=== PATIENT | male | born 1995 | race Caucasian/White ===

== ENCOUNTER 2017-03-21 00:19 | Inpatient (IN) | payer MEDICAID, OTHER ==
[2017-03-21] VITALS (8 sets, daily range): BP systolic 123–155; BP diastolic 57–70; PULSE 61–99; RESP 16–20; TEMP 98–99.1; O2SAT 96–100
[~2017-03-21] VITALS: Ht 180.3 cm; Wt 102.3 kg
[2017-03-21] MEDS ORDERED: SODIUM CHLOR 0.9% 1000 ML INJ 1,000 ML IV SCH ×2 (00:36→06:35)
[2017-03-21] MEDS ORDERED: ceFAZolin 2 GM PREMIX 50 ML IV ONE (00:45)
[2017-03-21] MEDS ORDERED: SODIUM CHLORIDE 0.9% FLUSH 10 ML FLUSH IVF PRN (00:45)
[2017-03-21] MEDS ORDERED: DIPHTH/TETANUS/ACEL PERTUSSIS (BOOSTER) 0.5 ML VIAL/PFS IM ONE (00:45)
[2017-03-21] MEDS ORDERED: MORPHINE SULFATE 4 MG/ML INJ IV ONE (00:45)
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
[2017-03-21] MEDS ORDERED: PROPOFOL 200 MG/20 ML AMP IV ONE ×2 (01:45→13:55)
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
[2017-03-21] MEDS ORDERED: IOHEXOL 350 MG/ML 10 ML VIAL (for RAD DIAG) IVCONTRAST ONE (01:48)
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
[2017-03-21 02:03] LABS: AUTOMATED NEUTROPHIL # 16.7 TH/MM3 (1.8-7.7); BASOPHIL # 0.1 TH/MM3 (0-0.2); BASOPHIL % 0.3 % (0.0-2.0); EOSINOPHIL # 0.1 TH/MM3 (0-0.4); EOSINOPHIL % 0.3 % (0.0-4.0); HEMATOCRIT 39.1 % (39.0-51.0); HEMO FLAGS DIFF FINAL; LYMPH % 6.8 % (9.0-44.0); LYMPHOCYTE # 1.4 TH/MM3 (1.0-4.8); MEAN CORPUSCULAR HEMOGLOBIN 29.9 PG (27.0-34.0); MEAN CORPUSCULAR HGB CONC 33.9 % (32.0-36.0); NEUT % 83.6 % (16.0-70.0); PLATELET COUNT 254 TH/MM3 (150-450); RED BLOOD COUNT 4.45 MIL/MM3 (4.50-5.90); RED CELL DISTRIBUTION WIDTH 13.1 % (11.6-17.2)
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
[2017-03-21 02:12] LABS: APTT (PATIENT) 24.7 SEC (24.3-30.1); PROTHROMBIN TIME - PATIENT 11.4 SEC (9.8-11.6)
[2017-03-21 02:39] LABS: POTASSIUM 3.4 MEQ/L (3.5-5.1)
[2017-03-21 02:43] LABS: BACTERIA, URINE RARE /hpf; BLOOD, URINE SMALL (NEG); COMMENT (UR) CULT NOT INDICATED; CULTURE IF INDICATED CULT NOT INDICATED; GLUCOSE,URINE NEG (NEG); KETONE, URINE NEG (NEG); MUCUS URINE FEW /lpf (OCC); NITRITE,URINE NEG (NEG); SQUAMOUS EPITHELIAL CELL URINE <1 /hpf (0-5); TRANSITIONAL EPI CELLS, URINE <1 /hpf; URINE COLOR YELLOW (YELLW/STRAW)
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
[2017-03-21] MEDS ORDERED: HYDROmorphone HCL PF 1 MG/ML VIAL IV PUSH PRN (03:00)
[2017-03-21] MEDS ORDERED: oxyCODONE/ACETAMINOPHEN 5 MG/325 MG TAB PO PRN ×2 (03:00)
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
--- NOTE | 2017-03-21 03:31 | RADRPT ---
EXAM DATE/TIME: 03/21/2017 03:08 [facility] COMPARISON: No previous studies available for comparison. INDICATIONS : Pain to left ankle and foot, abrasion to left foot MEDICAL HISTORY : None. SURGICAL HISTORY : None. ENCOUNTER: Initial ACUITY: 1 day PAIN SCORE: 7/10 LOCATION: Left Foot FINDINGS: Three view examination of the left foot demonstrates no soft tissue swelling, dislocation, or fractur e. The tarsal bones appear intact. The interphalangeal and metatarsophalangeal joints are intact. The calcaneus is intact. Bony mineralization is normal. CONCLUSION: 1. No acute fracture or dislocation. Mik Kearns MD on March 21, 2017 at 3:29 Board Certified Radiologist. This report was verified electronically.
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
[2017-03-21] MEDS ORDERED: ENALAPRILAT 1.25 MG/ML VIAL IV PRN (06:45)
[2017-03-21] MEDS ORDERED: SODIUM CHLORIDE 0.9% FLUSH 10 ML FLUSH IV FLUSH PRN (06:45)
[2017-03-21] MEDS ORDERED: ONDANSETRON HCL 4 MG/2 ML VIAL IV PRN (06:45)
[2017-03-21] MEDS ORDERED: VANCOMYCIN HCL 1000 MG VIAL ONE (07:03)
[2017-03-21] MEDS ORDERED: GENTAMICIN SULFATE 80 MG/2 ML VIAL ONE ×2 (07:04→09:07)
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
[2017-03-21] MEDS ORDERED: ACETAMINOPHEN 1000 MG/100 ML 100 ML IV ONE (08:08)
[2017-03-21] MEDS ORDERED: MIDAZOLAM HCL 2 MG/2 ML VIAL ONE (08:08)
[2017-03-21] MEDS ORDERED: FAMOTIDINE 20 MG/2 ML VIAL ONE (08:09)
[2017-03-21] MEDS ORDERED: HYDROmorphone HCL PF 2 MG/ML VIAL ONE (08:09)
--- NOTE | 2017-03-21 08:40 | OTSOAPIP ---
PATIENT OFF THE FLOOR IN SURGERY. Therapist: Carmen Frank OTR/L Signature on file
[2017-03-21] MEDS: DOCUSATE SODIUM 50 MG/SENNA 8.6 MG TAB PO SCH ×2 (09:00→20:48)
[2017-03-21] MEDS ORDERED: POTASSIUM CHLORIDE 20 MEQ CONTROLLED RELEASE TAB PO ONE (10:00)
--- NOTE | 2017-03-21 10:22 | PD.OP ---
cc: Carroll Garner MD Operative Report Date of Surgery: Mar 21, 2017 Preoperative Diagnosis: Left radius and ulna shaft fractures Postoperative Diagnosis: Closed left radius fracture, open left ulna fracture Procedure: Open reduction internal fixation left radius, open reduction internal fixation left ulna, irrigation and debridement of open left ulna Anesthesia: Gen. Surgeon: Carroll Garner Jewel Sawyer(s): CARLOS Roca PA-C The surgical procedure was assisted by my physician speech therapy assistant. My P.A. presence was necessary throughout this case for the manipulation and positioning of the surgical extremity. My P.A. was assisting me throughout the duration of this procedure. The skill set of a physician speech therapy assistant was medically necessary to complete this procedure. During the surgical case the surgical corsetier was working at the back table and the physician speech therapy assistant was directly assisting me. Operation and Findings: Patient was seen and examined preoperatively. Patient was found to have displaced left radius and ulna shaft fractures. Informed consent was obtained and operative site was marked. Patient was brought to operating room and given IV sedation and general anesthesia. Timeout procedure was performed. Operative extremity was prepped and draped with alcohol followed by Hibiclens and draped in usual sterile fashion. IV antibiotics were administered prior to incision. Procedure began with a 5 inch incision over the subcutaneous border of the ulna. At this point there was noted to be a puncture wound communicating with the fracture site. The ulna fracture is an open fracture Fascia was elevated off of the bone. Fracture site was visualized. At this point attention was turned to debridement of fracture. Curettes were used to debride the edges of the bone. Overall the wound was clean. After debridement of soft tissue and bone the wound was thoroughly irrigated with sterile saline with antibiotics. Next attention was turned towards reduction. Fracture tenaculums were used to reduce fracture. Fracture keyed into anatomic alignment. A ITS plate was placed across the fracture. Plate was provisionally held to bone with K wires. 3.5 cortical screws were used to compress plate to bone. Multiple screws were placed in each side of fracture. K wires were removed. Fluoroscopy confirmed excellent alignment of fracture with well-placed hardware. Incision was now closed with #1 Vicryl, 3-0 Vicryl, and tracy. Next attention was turned to the radius. A 5 inch incision was made over the volar aspect of the forearm. A standard volar approach was utilized. The interval between the radial artery and superficial radial nerve was identified. Neurovascular structures were protected. Soft tissue was elevated off the bone. Fracture site was visualized. Fracture fragments were carefully reduced. Each fracture fragment keyed in anatomic alignment. K wires were used to hold provisional fixation. A ITS plate was contoured to fit the radius. Plate was provisionally held with K wires. 3.5 cortical screws were used to compress plate to bone. Multiple screws were placed in each side of fracture. K wires were removed. Final fluoroscopy revealed excellent of fracture with well-placed hardware. Sterile dressings were applied with Xeroform 4 x 4 soft roll and Solis wrap. Patient was awakened and transferred to recovery room in stable condition. Forearm compartments were soft and compressible. Carroll Garner MD Mar 21, 2017 10:22
[2017-03-21] MEDS ORDERED: HYDR-3366 PO (10:23)
[2017-03-21] MEDS ORDERED: MORPHINE SULFATE 4 MG/ML INJ IV PUSH PRN (10:30)
[2017-03-21] MEDS ORDERED: MAGN400S PO (10:33)
[2017-03-21] MEDS ORDERED: SENN1TAB PO (10:33)
[2017-03-21] MEDS ORDERED: DO NOT ADM ANY ANTICOAGULANT DRUGS PRN (10:52)
--- NOTE | 2017-03-21 10:59 | PD.ORT.PN ---
Subjective Subjective Remarks POD 0 s/p ORIF left BBFA\ stable in PACU Objective Vitals Vital Signs Date Time Temp Pulse Resp B/P (MAP) Pulse Ox O2 Delivery O2 Flow Rate FiO2 03/21/17 08:00 03/21/17 04:00 99.1 99 18 123/57 (79) 97 03/21/17 02:05 100 Nasal Cannula 2.00 03/21/17 02:05 100 2.00 03/21/17 00:47 99 Room Air 03/21/17 00:47 99 Room Air 03/21/17 00:25 98.3 81 16 123/69 (87) 99 03/21/17 00:23 16 I/O 03/20/17 03/20/17 03/20/17 03/21/17 03/21/17 03/21/17 07:00 15:00 23:00 07:00 15:00 23:00 Intake Total 1100 ml 1000 ml Output Total 50 ml Balance 1100 ml 950 ml Intake IV Total 1100 ml Other 1000 ml Output Estimated Blood Loss 50 ml Result Diagram: 03/21/17 0152 03/21/17 0152 Other Results Laboratory Tests Test 03/21/17 01:52 Prothromb Time International Ratio 1.0 RATIO Prothrombin Time 11.4 SEC (9.8-11.6) Imaging Last [address] 03/21/1735 Signed Impressions: Service Date/Time: Tuesday, March 21, 2017 01:20 - CONCLUSION: 1. No acute intracranial abnormality. Mik Kearns MD Chest CT 03/21/1735 Signed Impressions: Service Date/Time: Tuesday, March 21, 2017 01:32 - CONCLUSION: 1. Probable small amount of residual thymus in the anterior mediastinum. 2. Otherwise, no acute thoracic injury. Mik Kearns MD Cervical Spine CT 03/21/1735 Signed Impressions: Service Date/Time: Tuesday, March 21, 2017 01:20 - CONCLUSION: 1. No acute fracture or dislocation. Mik Kearns MD Abdomen/Pelvis CT 03/21/1735 Signed Impressions: Service Date/Time: Tuesday, March 21, 2017 01:32 - CONCLUSION: 1. Subtle 1.3 cm region of decreased enhancement in the inferior splenic margin posteriorly. A small focal splenic injury cannot be entirely excluded, although not supported by any additional adjacent soft tissue or bony abnormality. 2. Otherwise, no acute abnormality in the abdomen or pelvis. Mik Kearns MD Wrist X-Ray 03/21/17 0000 Signed Impressions: Service Date/Time: Tuesday, March 21, 2017 00:51 - CONCLUSION: 1. Comminuted nondisplaced distal ulna/ulnar styloid fracture. 2. Redemonstration of fractures involving the distal radial and ulnar diaphyses. Mik Kearns MD Radius/Ulna X-Ray 03/21/17 0000 Signed Impressions: Service Date/Time: Tuesday, March 21, 2017 03:12 - CONCLUSION: 1. Status post reduction of distal left ulnar and radial fractures, as above. Mik Kearns MD Radius/Ulna X-Ray 03/21/17 0000 Signed Impressions: Service Date/Time: Tuesday, March 21, 2017 00:49 - CONCLUSION: 1. Distal radial and ulnar fractures, as above. 2. Nondisplaced comminuted fracture of the distal ulna/ulnar styloid. Mik Kearns MD Foot X-Ray 03/21/17 0000 Signed Impressions: Service Date/Time: Tuesday, March 21, 2017 03:08 - CONCLUSION: 1. No acute fracture or dislocation. Mik Kearns MD Femur X-Ray 03/21/17 0000 Signed Impressions: Service Date/Time: Tuesday, March 21, 2017 01:03 - CONCLUSION: 1. No acute fracture or dislocation. Mik Kearns MD Ankle X-Ray 03/21/17 0000 Signed Impressions: Service Date/Time: Tuesday, March 21, 2017 03:07 - CONCLUSION: 1. No acute fracture or dislocation. Mik Kearns MD Objective Remarks LUE: dressings clean and dry. intact. NVI. +sling Assessment & Plan Assessment and Plan 1) Left radial and ulnar shaft fractures s/p ORIF - POD 0 -NWB -dressing changes POD 2 -plan for DC home friday after IV Abx completed -f/u with Jan or [facility] in 2 weeks -ortho cleared for DC home once Abx completed Venkat Herrera Mar 21, 2017 10:59
--- NOTE | 2017-03-21 11:00 | HHI.FF ---
Face to Face Verification Diagnosis: (1) Fracture of left radius and ulna Occupational Therapy Left UE Weight Bearing: Non WB Nursing Dressing Changes: Daily dressing change, Solis wrap, 4x4s, Xeroform I have seen patient Silver Tompkins on 03/21/17. My clinical findings support the need for the requested home health care services because: Ltd mobility - disease progression I certify that my clinical findings support that this patient is homebound because: Post-op weakness Venkat Herrera Mar 21, 2017 11:00
[2017-03-21] MEDS: BACITRACIN TOP OINT 15 GM TUBE TOP SCH ×2 (11:23→20:48)
[2017-03-21] MEDS ORDERED: *morphine SULFATE 8 MG/ML PERIprocedure ONLY ONE (11:33)
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
--- NOTE | 2017-03-21 12:42 | RADRPT ---
EXAM DATE/TIME: 03/21/2017 10:05 [facility] COMPARISON: FOREARM LEFT (2VWS), March 21, 2017, 3:12. INDICATIONS : Reduction with screw and plate placement left forearm. MEDICAL HISTORY : Distal left ulnar and radial fractures, SURGICAL HISTORY : None. ENCOUNTER: Subsequent ACUITY: 1 day PAIN SCORE: Non-responsive. LOCATION: Left Forearm. FINDINGS: Side plate and multiple screws traverse the distal radius and ulna with excellent anatomical alignmen t of the fracture fragments. CONCLUSION: Intact postsurgical changes for technique. Cookie Saldana MD on March 21, 2017 at 12:40 Board Certified Radiologist. This report was verified electronically.
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
[2017-03-21] MEDS ORDERED: ONDANSETRON HCL 4 MG/2 ML VIAL IV PUSH ONE (13:55)
[2017-03-21] MEDS ORDERED: LACTATED RINGER'S 1000 ML INJ 1,000 ML IV ONE (13:55)
[2017-03-21] MEDS ORDERED: NEOSTIGMINE 3 MG/3 ML SYR IV ONE (13:55)
[2017-03-21] MEDS: ceFAZolin 2 GM PREMIX 50 ML IV SCH (17:32)
[2017-03-21] MEDS: ACETAMINOPHEN/HYDROcodone 325 MG/10 MG TAB PO PRN ×2 (17:32→20:49)
[2017-03-21 18:49] LABS: AUTOMATED NEUTROPHIL # 9.4 TH/MM3 (1.8-7.7); BASOPHIL % 0.1 % (0.0-2.0); HEMO FLAGS DIFF FINAL; LYMPH % 5.6 % (9.0-44.0); LYMPHOCYTE # 0.6 TH/MM3 (1.0-4.8); MEAN CELL VOLUME 89.3 FL (80.0-100.0); MEAN CORPUSCULAR HEMOGLOBIN 30.2 PG (27.0-34.0); MEAN CORPUSCULAR HGB CONC 33.8 % (32.0-36.0); MONO % 5.1 % (0.0-8.0); NEUT % 89.2 % (16.0-70.0); PLATELET COUNT 274 TH/MM3 (150-450); RED BLOOD COUNT 4.48 MIL/MM3 (4.50-5.90); RED CELL DISTRIBUTION WIDTH 13.5 % (11.6-17.2); WHITE BLOOD COUNT 10.6 TH/MM3 (4.0-11.0)
[2017-03-21] MEDS ORDERED: MAGNESIUM HYDROXIDE SUSP 30 ML CUP PO SCH (21:00)
[2017-03-21] MEDS ORDERED: FAMOTIDINE 20 MG TAB PO SCH (21:00)
[2017-03-22] MEDS: ceFAZolin 2 GM PREMIX 50 ML IV SCH ×2 (01:39→08:21)
[2017-03-22] MEDS: ACETAMINOPHEN/HYDROcodone 325 MG/10 MG TAB PO PRN ×2 (01:40→08:22)
[2017-03-22 01:54] VITALS: BP 122/60; PULSE 54; RESP 20; TEMP 98; O2SAT 98
[2017-03-22 04:48] VITALS: BP 144/84; PULSE 84; RESP 20; TEMP 98.2; O2SAT 98
[2017-03-22 05:15] LABS: HEMATOCRIT 36.1 % (39.0-51.0); REVIEW FLAG FINAL
[2017-03-22 07:58] VITALS: BP 110/54; PULSE 65; RESP 18; TEMP 98.1; O2SAT 96
[2017-03-22] MEDS: DOCUSATE SODIUM 50 MG/SENNA 8.6 MG TAB PO SCH (08:22)
[2017-03-22] MEDS: BACITRACIN TOP OINT 15 GM TUBE TOP SCH (08:25)
[2017-03-22] MEDS ORDERED: PERC5TAB12 PO (11:21)
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
== END 2017-03-22 12:37 | disposition home or self-care (01) | DRG 959 ==
LOC: NEPE 00:19 → NEDA 02:36 → N05B 04:20
PROVIDERS: ADMIT Surgery; ATTEND Surgery
PROC: 0PSJ04Z Reposition Left Radius with Internal Fixation Device, Open Approach (ICD-10-PCS; 2017-03-21)
PROC: 0PSJXZZ Reposition Left Radius, External Approach (ICD-10-PCS; 2017-03-21)
PROC: 0PSLXZZ Reposition Left Ulna, External Approach (ICD-10-PCS; 2017-03-21)
PROC: 0PSL04Z Reposition Left Ulna with Internal Fixation Device, Open Approach (ICD-10-PCS; principal; 2017-03-21 08:47)
DX: S52.202B Unspecified fracture of shaft of left ulna, initial encounter for open fracture type I or II (principal); S36.020A Minor contusion of spleen, initial encounter; S52.302A Unspecified fracture of shaft of left radius, initial encounter for closed fracture; S80.212A Abrasion, left knee, initial encounter; S90.812A Abrasion, left foot, initial encounter; S80.02XA Contusion of left knee, initial encounter; S90.32XA Contusion of left foot, initial encounter; V23.4XXA Motorcycle driver injured in collision with car, pick-up truck or van in traffic accident, initial encounter; Y92.410 Unspecified street and highway as the place of occurrence of the external cause
CPT/HCPCS: 25605; 70450; 71260; 72125; 73090; 73100; 73552; 73610; 73630; 74177; 76000; 80048; 81001; 85014; 85018; 85025; 85610; 85730; 86850; 86900; 86901; 90471; 90715; 94150; 96365; 96375; 99152; C1713; J0131; J0690; J1170; J1580; J2250; J2270; J2405; J2710; J3010; J3370; J7030; J7120; Q9967